=== PATIENT | female | born 1970 | race Hispanic/Latino ===

== ENCOUNTER 2016-09-19 06:09 | Inpatient (IN) | payer OTHER ==
[~2016-09-19] VITALS: Ht 165.1 cm; Wt 72.6 kg
[~2016-09-19 06:09] MED LIST: AMBI5TAB PO; CALC500T36 PO; IRON65TA PO; NAPR500T2 PO; NEXI20CA PO; PROZ10CA7 PO; VALA1TAB PO
[2016-09-19] MEDS ORDERED: cefoTEtan DISODIUM 1 GM in D5W MINI-BAG PLUS 50 ML IV ONE (06:15)
[2016-09-19] MEDS ORDERED: LR 1,000 ML IV SCH ×2 (06:15→11:30)
[2016-09-19] MEDS ORDERED: ROCURONIUM BROMIDE 50 MG/5 ML VIAL As Ordered ONE ×2 (06:22→09:29)
[2016-09-19] MEDS ORDERED: ONDANSETRON 4MG/2ML VIAL (J2405) As Ordered ONE (06:22)
[2016-09-19] MEDS ORDERED: PROPOFOL 200 MG/20 ML VIAL As Ordered ONE (06:22)
[2016-09-19] MEDS ORDERED: LIDOCAINE 2% INJ 100 MG/5 ML SDV (FOR ANES.) As Ordered ONE (06:22)
[2016-09-19] MEDS ORDERED: dexameTHASONE 4 MG/ML 1ML VIAL (J1100) As Ordered ONE (06:22)
[2016-09-19] MEDS ORDERED: KETOROLAC 60 MG/2 ML VIAL (J1885) As Ordered ONE (06:22)
[2016-09-19] MEDS ORDERED: fentaNYL 250 MCG/5 ML INJECTION (J3010) As Ordered ONE (06:27)
[2016-09-19] MEDS ORDERED: MIDAZOLAM INJ 2 MG/2 ML VIAL (J2250) As Ordered ONE (06:27)
[2016-09-19 06:40] LABS: BASO # 0.1 K/mm3 (0.0-0.2); EOS # 0.1 K/mm3 (0.0-0.50); EOS % 2.3 % (0.0-3.0); LARGE UNSTAINED CELL # 0.1 K/mm3 (0.0-0.4); LARGE UNSTAINED CELL % 1.5 % (0.0-4.0); LYMPH # 1.9 K/mm3 (1.5-4.5); LYMPH % 29.9 % (24.0-44.0); MEAN CORPUSCULAR HEMOGLOBIN 28.8 pg (27.0-33.0); MEAN CORPUSCULAR VOLUME 89.9 fl (80.0-96.0); MONO # 0.4 K/mm3 (0.0-0.8); MONO % 7.1 % (0.0-5.0); NEUTROPHILS # 3.5 K/mm3 (1.8-7.7); NEUTROPHILS % 58.2 % (36.0-66.0); PLATELET COUNT, AUTOMATED 351 k/mm3 (150-450)
[2016-09-19 06:56] LABS: CONTROL LINE HCG INT CTR LINE PRESENT
[2016-09-19] MEDS: BUPIVACAINE HCL 0.5% 30 ML VIAL As Ordered ONE ×2 (07:11→08:09)
[2016-09-19] MEDS: VASOPRESSIN INJ 20 UNITS/ML VIAL As Ordered ONE ×2 (07:50→08:58)
[2016-09-19] MEDS ORDERED: HYDROmorphone HCL 2 MG/ML 1ML VIAL (J1170) As Ordered ONE (09:31)
[2016-09-19] MEDS ORDERED: METHYLENE BLUE 0.5% (5MG/ML) 10 ML AMP (PROVAYBLUE)(Q9968 PER 1MG) As Ordered ONE (09:54)
[2016-09-19] MEDS ORDERED: ePHEDrine SULFATE 25 MG/5 ML(5MG/ML) SYRINGE As Ordered ONE (10:19)
[2016-09-19] MEDS ORDERED: BUPIVACAINE LIPOSOME/PF 1.3% 20 ML VIAL (13.3MG/ML)(EXPAREL) As Ordered ONE (10:42)
[2016-09-19] MEDS ORDERED: zolPIDEM TARTRATE 5 MG TAB PO PRN (11:15)
[2016-09-19] MEDS ORDERED: EPIDURAL/PCA KEYS XX PRN (11:15)
[2016-09-19] MEDS ORDERED: ONDANSETRON 4MG/2ML VIAL (J2405) IV PRN ×2 (11:15→11:30)
[2016-09-19] MEDS ORDERED: NALOXONE INJ 0.4 MG/1 ML VIAL (J2310) IV PRN (11:15)
[2016-09-19] MEDS ORDERED: MIRALAX *UNIT DOSE* 17GM PACKET PO PRN (11:15)
[2016-09-19] MEDS ORDERED: NALBUPHINE HCL 10 MG/ML AMP (J2300) IV PRN (11:15)
[2016-09-19] MEDS ORDERED: KETOROLAC 30 MG/ML VIAL (J1885) IV PRN (11:15)
[2016-09-19] MEDS ORDERED: diphenhydrAMINE INJ 50MG/ML VIAL (J1200) IV PRN (11:15)
[2016-09-19] MEDS ORDERED: fentaNYL 100 MCG/2 ML INJECTION (J3010) IV PRN (11:30)
[2016-09-19] MEDS ORDERED: PERCOCET 5MG/325MG TAB PO PRN (11:30)
[2016-09-19] MEDS: HYDROmorphone HCL 1 MG/ML SYRINGE (J1170) IV PRN ×2 (11:30→11:38)
[2016-09-19] MEDS: MORPHINE PCA 1MG/ML 100ML CADD IV PRN (11:41)
[2016-09-19 13:00] VITALS: BP 123/69
[2016-09-19 13:30] VITALS: BP 129/74
--- NOTE | 2016-09-19 14:26 | RO ---
DATE OF PROCEDURE: 09/19/2016 PREPROCEDURE DIAGNOSIS: 1) Fibroid Uterus 2) Abnormal Uterine Bleeding POSTPROCEDURE DIAGNOSIS: Same as Above. SURGEON: Corey Langston MD GEOLOGICAL E LOGGER: Hu Crowe MD ANESTHESIA: General Rosanna The patient is a 46-year-old G1-0-1-2 with known long history of abnormal uterine bleeding with previous endometrial ablation who desires definitive surgical management this day. Also, had previous bilateral salpingectomy. Also, known fibroid uterus. The patient had undergone extensive evaluation and review and desired definitive surgical management with no further desire for hormonal management. The risks, benefits, indications, alternatives of the procedure reviewed with the patient. Informed consent was obtained. The patient was taken to the operating room, where general anesthesia was obtained without difficulty. DESCRIPTION OF PROCEDURE: The patient was then placed in a low lithotomy position using Nestor stirrups, and the arms were tucked with padding. An examination under anesthesia demonstrated approximately [id number] uterus with no descent, and no adnexal masses or fullness were appreciated. She was then prepped and draped in a sterile fashion, and a Duran catheter was then placed. After a time-out was performed, a sterile speculum was placed in the patient's vagina, and her cervix was visualized. A single-toothed tenaculum was used to grasp the anterior lip of the cervix. However, no noted descent was appreciated of the uterus/cervix at this time. Attempts were then made to place a VCare which was successful using a colpotomy ring and a vaginal occluder balloon as means to attempt to manipulate the uterus. However, after this was appropriately placed per lens inspector's recommendations, there was no appreciable movement of the uterus appreciated. The speculum was then removed from the patient's vagina. After gloves were exchanged, attention was then turned to the patient's abdomen, where a 5 mm infraumbilical incision was made where a previous trocar site. A 5 mm trocar and sleeve were then carefully introduced into the peritoneal cavity under direct visualization at a 90-degree angle while tenting up the abdominal wall. Intraperitoneal placement was confirmed under direct visualization again with the laparoscopy with entering pressure of less than 5 mmHg. A pneumoperitoneum was obtained with several liters of CO2 gas, establishing a maximum pressure of 15 mmHg. Upon entering the peritoneal cavity, structures immediately below the incision were inspected and found to be free of injury. A survey of the patient's abdomen and pelvis were noted for normal-appearing liver , large bulky adhesed fibroid uterus was appreciated, as well as an appendix was visualized without significant inflammation. However, due to scarring, as well as bulky-sized uterus that took up the entire breadth of the pelvis, decision was then made to convert to an open procedure. The pneumoperitoneum was released, and the trocar site was removed under direct visualization. A 5 mm skin incision was then closed with 4-0 Monocryl in a subcuticular fashion without issues. Attention was then turned to the patient's vagina, where the VCare manipulator was removed in routine fashion with normal still placement of the Duran catheter. After gowns and gloves were then exchanged, a Pfannenstiel skin incision was made through the previous Pfannenstiel skin incision and was carried through to the underlying layer of the fascia. The fascia was then entered with Bovie cautery and extended laterally. The underlying rectus muscle was in the midline carefully with the assistance of Erica clamps, and the peritoneum was identified, grasped with hemostats, and entered sharply with Metzenbaum scissors. The peritoneal incision was then extended superiorly and inferiorly using a Bovie cautery. Manual visual examination of the pelvis was noted for previous mentioned uterus, as well as adhesions of the left adnexal region to the omentum and the pelvic sidewall. The bowel was then packed from the operating table using moist field laps, and O'Andres-O'Guadarrama self-retaining retractor was then placed into the abdominal cavity and utilized per recommended guidelines. Two large clamps were grasped across each edge of missing fallopian tube and uteroovarian ligament to the uterus. The uterus was then elevated to the level of the incision. The round uterine ligaments were then grasped with Erica clamps near the uterine cornua. The round ligaments were suture ligated with 0 Vicryl and transected with electrocautery bilaterally, allowing entry into the broad ligament. The anterior posterior leaf of the broad ligament were then incised. The anterior leaf of the broad ligament was then incised along the bladder reflection, and a posterior leaf was incised 1-2 cm inferiorly. Perirectal space was then noted, and bilateral identification of the ureters was then done. A window was created then in the avascular plane and the broad ligament below and parallel to the infundibulopelvic (IP) ligament and above the ureter. The fallopian tubes were noted to be previously removed. The utero-ovarian ligaments were then doubly clamped as close as possible to the uterine corpus, transected, and suture ligated with 0 Vicryl on both sides. The pedicles were reinspected and excellent hemostasis noted. The bladder was then gently dissected off the lower uterine segment with the assistance of a sponge stick and sharp, as well as electrocautery, dissection until the endopelvic fascia was visualized. The uterine arteries were then identified along the lateral aspect of the uterus at the level of the isthmus and skeletonized. The uterine arteries were doubly clamped, cut, and transected using suture ligation on both sides. Hemostasis was ensured. The cardinal ligaments were then clamped, transected, and suture ligated bilaterally. Finally, the uterosacral ligaments were clamped, transected, and suture ligated bilaterally. Hemostasis was noted. Some oozing was noted from the right ovary with oversewing with a figure-of-8 with 3-Vicryl, as well as a running suture with 3-0 Vicryl. Hemostasis was ensured after this. Curved clamps were then placed across the vagina and endocervix, and the uterus and cervix were amputated using Raquel scissors. Anterior and posterior vaginal cuff edges were then inspected and closed and transfixed to the ipsilateral uterosacral and cardinal ligaments. The remainder of the cuff was closed using 0 Vicryl and multiple figure-of-8 sutures with care to incorporate the anterior pubocervical and posterior rectovaginal fascia. The abdomen was then copiously irrigated with warm saline. All pedicles were noted to be hemostatic. The cystoscope was then primed and advanced through the urethra into the bladder after a dose of methylene blue was given. Both ureteral orifices were identified and bilateral efflux of methylene blue stained urine was noted. A survey of the bladder demonstrating no defects or visible suture. The cystoscope was then removed, and the Duran catheter was placed to drain the bladder. Prior to placement of the cystoscope, the Duran catheter was removed. Gloves and gown were then re-exchanged, and attention was then again turned to the patient's abdomen, where again all pedicles were noted to be hemostatic. At this point, the fascia was reapproximated with 0 Vicryl in a running fashion, and subcutaneous tissue was closed with 3-0 Vicryl in an interrupted fashion times four. Prior to closure the fascia, the peritoneum was reapproximated with 3-0 Vicryl in a running fashion. The skin was closed with 4-0 Monocryl in a running subcuticular suture. Steri-Strips were then placed, as well as an abdominal pressure dressing. A manual examination performed and demonstrated excellent suspension and elevation. No retained objects were noted in the vagina. Sponge, lap, needle counts, instrument counts correct times two, and the patient was taken to the postanesthesia care unit (PACU) in stable condition. Antibiotics were given prior to the beginning of the case. BRENNON
[2016-09-19 14:30] VITALS: BP 127/76
[2016-09-19 15:30] VITALS: BP 127/82
[2016-09-19] MEDS: DOCUSATE SODIUM 100 MG CAP PO SCH ×2 (17:27→19:57)
[2016-09-19] MEDS: NS 1,000 ML IV SCH (19:27)
[2016-09-19 21:30] VITALS: BP 120/72
[2016-09-20 01:30] VITALS: BP 129/68
[2016-09-20] MEDS: MORPHINE PCA 1MG/ML 100ML CADD IV PRN (05:09)
[2016-09-20 06:00] VITALS: BP 118/68
[2016-09-20] MEDS ORDERED: FLUoxetine 10 MG CAP PO SCH (09:00)
[2016-09-20] MEDS ORDERED: PANTOPRAZOLE 20 MG TAB PO SCH (09:00)
[2016-09-20] MEDS: DOCUSATE SODIUM 100 MG CAP PO SCH ×2 (09:28→19:54)
[2016-09-20] MEDS: NS 1,000 ML IV SCH (11:15)
[2016-09-20 14:00] VITALS: BP 122/68
[2016-09-20] MEDS: IBUPROFEN 800 MG TAB PO PRN (14:30)
--- NOTE | 2016-09-20 17:00 | IPN ---
DATE: 09/20/2016 This lady had a converted hysterectomy to abdominal hysterectomy from laparoscopic because of an large uterus fibroid. Uterus fixed, uterus and adenomyosis. She had an uneventful operative intervention on her first day. Her blood pressure is 122/68, respirations are 17, pulse 100, temperature 97.4. She developed some nausea with the morphine drip and we discontinued that and put her on Percocet and ibuprofen and Zofran for anti nausea and she seemed to do well. She is voiding well, passing gas. She had one hemoglobin on admission 11.0, hematocrit 34.2 and platelets are 351. Her pathology report revealed a proliferative endometrium adenomyosis. The largest fibroid was 5 cm. The uterus weighed 330 grams and she had a endosalpingiotic focus on that tube. We discussed phlebitis, cystitis, mastitis, metritis and cellulitis, diet, exercise pain management, perineal wound care. We removed the bandage there was some old blood underneath. She has multiple Steri-Strips on and there is no active bleeding. We counseled her about removing the Steri-Strips in the shower we counseled regarding and nothing in the vagina with pelvic rest for 6-8 weeks. We counseled regarding discharge from the vagina either dark reardon, black, dark brown, but if she has any profuse bleeding like a period she needs to contact us immediately. We counseled her regarding what she can do at home. The rest of the examination was unremarkable. Normocephalic, atraumatic. Neck: Full range of motion. Pupils equal and reactive to light. Distal pulses are symmetric. Chest is clear bilaterally to bases. No wheezes or rhonchi. No costovertebral angle (CVA) tenderness. Abdomen: Soft, four quadrant bowel sounds are noted. Incisional site is as mentioned. She has no rashes, lesions or pruritus. No arthralgia, myalgia, complaints of cough, wheezes, shortness of breath or dyspnea on exertion. She has no chest pain. She is not bleeding. Neurologic complete. No incontinence and zero frequency. No nausea, vomiting, diarrhea, constipation. Gyne history was as mentioned previously, dysmenorrhea, abnormal uterine bleeding, fibroid uterus. PAST SURGICAL HISTORY: section. FAMILY HISTORY: Noncontributory. SOCIAL HISTORY: She does not smoke, drink or abuse drugs and there is no domestic violence. She is to a soldier. In summary this lady is postoperative day #1 mobilizing well and anxious to get home. She has her medications dispensed by Dr. Langston and she will be discharged tomorrow morning at the earliest convenience.
[2016-09-20] MEDS ORDERED: ONDANSETRON 4 MG TAB (S0181) PO PRN (18:15)
[2016-09-20] MEDS: PERCOCET 5MG/325MG TAB PO PRN (19:55)
[2016-09-20 22:00] VITALS: BP 117/79
[2016-09-21] MEDS: IBUPROFEN 800 MG TAB PO PRN (03:06)
[2016-09-21] MEDS: PERCOCET 5MG/325MG TAB PO PRN ×2 (05:45→10:30)
[2016-09-21 06:00] VITALS: BP 109/65
[2016-09-21] MEDS ORDERED: MOTR200T44 PO ×2 (09:35→09:39)
[2016-09-21] MEDS ORDERED: NORC1TAB4 PO (09:39)
--- NOTE | 2016-09-22 15:05 | DSES ---
DATE OF ADMISSION: 09/19/2016 DATE OF DISCHARGE: 09/21/2016 This lady had an abdominal hysterectomy 2 days ago. Had an uneventful postoperative course. On her discharge day, her blood pressure is 109/65, respirations 15, pulse 82, and temperature is 98.2. She had been preoperatively given her pain medications to go home with. We discussed phlebitis, cystitis, mastitis, metritis, cellulitis, diet, excise, pain management, and breast and wound care. We discussed incentive spirometry, adequate hydration, and concerns about pelvic rest, driving, and other normal domestic duties. On discharge she was normocephalic, atraumatic. Neck: Full range of motion. Pupils equal and reactive to light. Distal pulses are symmetric. No evidence of deep vein thrombosis (DVT), pulmonary embolism (PE), or superficial phlebitis. Chest was clear bilaterally to bases. No wheezes or rhonchi. Thyroid is normal midline. No costovertebral angle (CVA) tenderness. Abdomen is soft. Incision is clean and dry. Bowel sounds were noted. No rashes, lesions, or pruritus. No arthralgia or myalgia. No bruising. No complaints of cough, wheezes, shortness of breath, or dyspnea on exertion. No chest pain. No bleeding. Neurologic complete. No incontinency, urgency, or frequency. She has had a bowel movement, passing gas. No diabetic issues. She has no other [employer] issues. Past medical and surgical history unremarkable. She does not smoke, drink, or abuse drugs. 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 In summary, we have a patient who had an elective total abdominal hysterectomy (SIERRA) for abnormal uterine bleeding and fibroid uterus with discharge to followup in two weeks' time for incisional check and six weeks' time for postoperative check. All questions and were answered, and the patient was discharged in good condition.
== END 2016-09-21 10:40 | disposition home or self-care (01) | DRG 743 ==
LOC: M OR 06:09 → M MS5PR 12:55
PROVIDERS: ADMIT Student in an Organized Health Care Education/Training Program; ATTEND Student in an Organized Health Care Education/Training Program
PROC: 0UTC0ZZ Resection of Cervix, Open Approach (ICD-10-PCS; 2016-09-19)
PROC: 0UT90ZZ Resection of Uterus, Open Approach (ICD-10-PCS; principal; 2016-09-19 07:30)
DX: D25.1 Intramural leiomyoma of uterus (principal); D25.2 Subserosal leiomyoma of uterus; D25.0 Submucous leiomyoma of uterus; N93.9 Abnormal uterine and vaginal bleeding, unspecified; N80.0 Endometriosis of uterus; F32.9 Major depressive disorder, single episode, unspecified; K21.9 Gastro-esophageal reflux disease without esophagitis; B00.9 Herpesviral infection, unspecified; Z53.31 Laparoscopic surgical procedure converted to open procedure; Z79.899 Other long term (current) drug therapy